=== PATIENT | female | born 1985 | race Caucasian/White ===

== ENCOUNTER 2020-02-26 09:17 | Emergency (ER) | payer BC ==
[2020-02-26] MEDS ORDERED: Lactated Ringers 1,000 ML IV ONE (09:30)
[2020-02-26] MEDS ORDERED: Pantoprazole 40 MG Vial IVPUSH ONE (09:31)
[2020-02-26] MEDS ORDERED: Ondansetron 4 MG/2 ML SDV IVPUSH ONE (09:31)
[2020-02-26] MEDS ORDERED: Sucralfate 1 GM Tab PO ONE (09:32)
--- NOTE | 2020-02-26 09:42 | EDM.PDOC ---
ED HPI GENERAL MEDICAL PROBLEM - General Chief Complaint: Abdominal Pain Stated Complaint: THROWING UP BLOOD,WEAK Time Seen by Provider: 02/26/20 09:37 Source of Information: Reports: Patient, Old Records, RN History Limitations: Reports: No Limitations - History of Present Illness INITIAL COMMENTS - FREE TEXT/NARRATIVE: 34 yo female was drinking heavily of alcohol last night and later about 0300h started vomiting. Has epigastric pain and hematemesis associated with the vomiting. No fever. Was recently put on doxycycline for "PID" in the clinic. Is a user of nicotine via vaping. Is not currently using ibuprofen as was listed in her medical record. Was not having any adverse effects from the doxycycline that she is aware of. Onset: Today, Sudden Onset Date: 02/26/20 Onset Time: 03:00 Duration: Hour(s):, Constant Location: Reports: Abdomen Quality: Reports: Ache Severity: Moderate Improves with: Reports: None Worsens with: Reports: Other (uncertain) Context: Reports: Other (See HPI) Associated Symptoms: Reports: Loss of Appetite, Nausea/Vomiting, Other (hematemesis). 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 (see below) (none) - Related Data Allergies Allergy/AdvReac Type Severity Reaction Status Date / Time No Known Allergies Allergy Verified 02/26/20 09:47 Home Meds: Home Meds Folic Acid 0.4 mg PO DAILY 06/26/14 [History] Pnv No.95/Ferrous Fum/Folic AC [ Tablet] 1 each PO DAILY 06/26/14 [History] Acetaminophen with Codeine [Tylenol with Codeine #3 Tablet] 1 each PO Q4H PRN #30 tablet 06/28/14 [Rx] Ibuprofen [Motrin] 600 mg PO Q6H PRN #30 tablet 06/28/14 [Rx] ED ROS GENERAL - Review of Systems Review Of Systems: See Below Constitutional: Reports: No Symptoms HEENT: Reports: No Symptoms Respiratory: Reports: No Symptoms Cardiovascular: Reports: No Symptoms Endocrine: Reports: No Symptoms GI/Abdominal: Reports: Abdominal Pain, Decreased Appetite, Hematemesis, Nausea, Vomiting. Denies: Black Stool, Bloody Stool, Constipation, Diarrhea, Hematochezia, Melena : Reports: No Symptoms Musculoskeletal: Reports: No Symptoms Skin: Reports: No Symptoms Neurological: Reports: No Symptoms ED EXAM, GI/ABD - Physical Exam Exam: See Below Exam Limited By: No Limitations General Appearance: Alert, WD/WN, No Apparent Distress, Other (crying) Eyes: Bilateral: Normal Appearance Ears: Normal External Exam, Normal Canal, Hearing Grossly Normal Nose: Normal Inspection, No Blood Throat/Mouth: Normal Inspection, Normal Lips, Normal Oropharynx, Normal Voice, No Airway Compromise Head: Atraumatic, Normocephalic Neck: Normal Inspection Respiratory/Chest: No Respiratory Distress, Lungs Clear, Normal Breath Sounds, No Accessory Muscle Use Cardiovascular: Regular Rate, Rhythm, No Edema GI/Abdominal Exam: Normal Bowel Sounds, Soft, No Distention, Tender (epigastric). No: Non-Tender, Distended, Guarding, Rigid, Rebound, Hernia Back Exam: Normal Inspection. No: CVA Tenderness (R), CVA Tenderness (L) Extremities: Normal Inspection, Normal Range of Motion, Non-Tender, No Pedal Edema Neurological: Alert, Oriented, CN II-XII Intact, Normal Cognition, No Motor/Sensory Deficits Psychiatric: Normal Affect, Normal Mood Skin Exam: Warm, Dry, Intact, Normal Color, No Rash Course - Vital Signs Last Recorded V/S: Last Vital Signs Temp 36.7 C 02/26/20 09:20 Pulse 90 02/26/20 09:20 Resp 17 02/26/20 09:20 BP 152/106 H 02/26/20 09:20 Pulse Ox 94 L 02/26/20 09:20 - Orders/Labs/Meds Orders: Active Orders 24 hr Category Date Time Status Orthostatic Vital Signs [RC] ASDIRECTED Care 02/26/20 11:03 Active Labs: Laboratory Tests 02/26/20 02/26/20 02/26/20 Range/Units 09:40 09:40 09:40 WBC 9.3 (4.5-12.0) X10-3/uL RBC 4.40 (3.23-5.20) x10(6)uL Hgb 14.3 (11.5-15.5) g/dL Hct 42.3 (30.0-51.3) % MCV 96.1 H (80-96) fL MCH 32.6 (27.7-33.6) pg MCHC 33.9 (32.2-35.4) g/dL RDW 12.8 (11.5-15.5) % Plt Count 287 (125-369) X10(3)uL Sodium 142 (135-145) mmol/L Potassium 3.8 (3.5-5.3) mmol/L Chloride 103 (100-110) mmol/L Carbon Dioxide 27 (21-32) mmol/L BUN 19 H (7-18) mg/dL Creatinine 0.8 (0.55-1.02) mg/dL Est Cr Clr Drug Dosing TNP Estimated GFR (MDRD) > 60 (>60) BUN/Creatinine Ratio 23.8 H (9-20) Glucose 126 H (80-116) mg/dL Calcium 8.9 (8.6-10.2) mg/dL Lipase (73-393) U/L Urine HCG, Qual (NEGATIVE) Blood Type O POSITIVE Gel Antibody Screen Negative 02/26/20 02/26/20 Range/Units 09:40 11:00 WBC (4.5-12.0) X10-3/uL RBC (3.23-5.20) x10(6)uL Hgb (11.5-15.5) g/dL Hct (30.0-51.3) % MCV (80-96) fL MCH (27.7-33.6) pg MCHC (32.2-35.4) g/dL RDW (11.5-15.5) % Plt Count (125-369) X10(3)uL Sodium (135-145) mmol/L Potassium (3.5-5.3) mmol/L Chloride (100-110) mmol/L Carbon Dioxide (21-32) mmol/L BUN (7-18) mg/dL Creatinine (0.55-1.02) mg/dL Est Cr Clr Drug Dosing Estimated GFR (MDRD) (>60) BUN/Creatinine Ratio (9-20) Glucose (80-116) mg/dL Calcium (8.6-10.2) mg/dL Lipase 54 L (73-393) U/L Urine HCG, Qual Negative (NEGATIVE) Blood Type Gel Antibody Screen Meds: Medications Discontinued Medications Generic Name Dose Route Start Last Admin Trade Name Freq PRN Reason Stop Dose Admin Al Hydroxide/Mg Hydroxide 15 0 ml 02/26/20 10:32 02/26/20 10:36 ml/ Lidocaine HCl 15 ml PO 02/26/20 10:33 30 ml ONETIME ONE Administration Lactated Ringer's 1,000 mls @ 1,000 mls/hr 02/26/20 09:30 02/26/20 09:45 Ringers, Lactated IV 02/26/20 10:29 1,000 mls/hr BOLUS ONE Administration Ondansetron HCl 4 mg 02/26/20 09:31 02/26/20 09:49 Zofran IVPUSH 02/26/20 09:32 4 mg ONETIME ONE Administration Pantoprazole Sodium 80 mg 02/26/20 09:31 02/26/20 09:49 Protonix Iv IVPUSH 02/26/20 09:32 80 mg .BOLUS ONE Administration Sucralfate 1 gm 02/26/20 09:32 02/26/20 10:36 Carafate PO 02/26/20 09:33 1 gm ONETIME ONE Administration - Re-Assessments/Exams Free Text/Narrative Re-Assessment/Exam: 02/26/20 11:36 Feeling better after treatment, orthostats normal. No additional vomiting. Departure - Departure Time of Disposition: 11:45 Disposition: Home, Self-Care 01 Condition: Fair Clinical Impression: Gastritis Qualifiers: Gastritis type: unspecified gastritis Chronicity: acute Gastritis bleeding: with bleeding Qualified Code(s): K29.01 - Acute gastritis with bleeding - Discharge Information *PRESCRIPTION DRUG MONITORING PROGRAM REVIEWED*: Not Applicable *COPY OF PRESCRIPTION DRUG MONITORING REPORT IN PATIENT ALE: Not Applicable Instructions: Gastritis, Adult, [id number] Referrals: PCP,None [Ordering Only Provider] - Forms: ED Department Discharge Additional Instructions: Take omeprazole 40 mg daily for stomach healing. Take Zofran every 6 hrs as needed for nausea control. Take acetaminophen as needed for pain relief. You may add Maalox or Riopan or Mylanta 30 ml after mealtime and bedtime for added relief. See you provider for recheck later this week. Avoid: alcohol, caffeine, ibuprofen, aspirin, Aleve(naproxen), carbonated beverages, or tobacco products. Sepsis Event Note (ED) - Focused Exam Vital Signs: Vital Signs Temp Pulse Resp BP Pulse Ox 02/26/20 09:20 36.7 C 90 17 152/106 H 94 L - My Orders Last 24 Hours: My Active Orders 02/26/20 11:03 Orthostatic Vital Signs [RC] ASDIRECTED - Assessment/Plan Last 24 Hours: My Active Orders 02/26/20 11:03 Orthostatic Vital Signs [RC] ASDIRECTED
[2020-02-26] MEDS ORDERED: Alum Hydroxide/Mag Hydroxide 15 ML, Lidocaine 2% 15 ML PO ONE ×2 (10:32)
[2020-02-26 10:35] VITALS: BP 152/106; PULSE 90
== END 2020-02-26 11:49 | disposition home or self-care (01) ==
LOC: FB.ED 09:17
DX: K29.01 Acute gastritis with bleeding (principal)
CPT/HCPCS: 36415; 80048; 81025; 83690; 85027; 86850; 86900; 86901; 96361; 96374; 96375; 99284-25; A9270-GY; C9113; J2405; J7120